=== PATIENT | male | born 1960 | race Caucasian/White ===

== ENCOUNTER 2020-04-14 18:27 | Emergency (ER) | payer SELFPAY ==
[~2020-04-14] VITALS: Ht 177.8 cm; Wt 70.3 kg
--- NOTE | 2020-04-14 18:32 | Emergency Room Report ---
History of Present Illness General Chief Complaint: Alcohol Intoxication Source: Patient, EMS Present Illness HPI Patient is a 59-year-old male unclear past medical history brought in by EMS for alcohol intoxication. Patient was laying in front of the building and security called 911. Patient had an empty bottle of vodka next to him. He also admits to doing "all the drugs". He denies any pain. Patient is a poor historian due to acute intoxication. When I asked him if he drank alcohol today he said "not enough". Allergies: Coded Allergies: UNABLE TO ASSESS (Unverified , 04/14/20) COVID-19 Screening Contact w/high risk pt: No Experienced COVID-19 symptoms?: No COVID-19 Testing performed ATTENDANT ARCADE: No Patient History Reviewed Nursing Documentation: PMH: Agreed; PSxH: Agreed Nursing Documentation-PMH Past Medical History: Deferred Review of Systems All Other Systems: limited - acute intoxication Physical Exam Vital Signs Date Time Temp Pulse Resp B/P (MAP) Pulse Ox O2 Delivery O2 Flow Rate FiO2 04/14/20 18:23 97.2 118 19 120/86 (97) 98 Room Air Sp02 EP Interpretation: reviewed, normal General Appearance: no apparent distress, other - Disheveled Head: normocephalic, atraumatic Eyes: bilateral eye normal inspection, bilateral eye PERRL ENT: other - EtOH on breath Neck: full range of motion, supple/symm/no masses Respiratory: no respiratory distress, no accessory muscle use Cardiovascular #1: tachycardia Gastrointestinal: non tender, soft, no guarding, no rebound Rectal: deferred Musculoskeletal: normal range of motion Neurologic: professional caster III-XII nml as tested Psychiatric: no suicidal/homicidal ideation Skin: no rash Lymphatic: no adenopathy Medical Decision Making Homeless Attestation I, The treating physician Dr. Miranda, have assessed and agrees that patient is medically stable for discharge to an outpatient disposition. Diagnostic Impression: Primary Impression: Acute alcoholic intoxication ER Course Patient presented acutely intoxicated. Patient given IV fluids. CT brain demonstrates no acute intracranial pathology. Patient's heart rate has improved and is currently in the 90s. Patient is tolerating p.o. Patient is ambulating without difficulty. He is now alert and oriented x3. Patient advised to refrain from excessive alcohol abuse. After discussing risks and benefits of further diagnostics, treatment plans, as well as indications for and risks of admission, the patient is agreeable to being discharged home. I have explained that their evaluation and treatment in the emergency department today is an important step towards them achieving better health but that their evaluation today is not intended to replace further evaluation and treatment by a physician in their local clinic. I have explained that while the current findings suggest no immediate life threatening emergency they will require further evaluation and treatment by a physician of their choice in their area. They understand that it will be necessary for them to review the final reports of their ED visit with their clinic physician. We have reviewed indications for return to the Emergency Department. I have explained that additional time may need to pass and/or additional testing as an outpatient may be necessary before a definitive diagnosis can be made. They tell me they are willing to follow up as instructed within the timeframe I recommend. They appear to understand what we discussed. Additionally they understand that if they are unable to be seen by an outpatient physician they are welcome, and in fact should, return to the Emergency Department for a repeat evaluation. The patient is stable at time of discharge. Laboratory Tests Test 04/14/20 18:53 POC Whole Blood Glucose 167 MG/DL (74-106) H EKG Diagnostic Results EKG Time: 18:52 EP Interpretation: Emerald Miranda MD Rate: tachycardiac - 109 bpm Rhythm: other - Sinus tachycardia ASA given to the pt in ED: No Rhythm Strip Diag. Results Rhythm Strip Time: 18:58 EP Interpretation: yes - Emerald Miranda MD Rate: 106 bpm Rhythm: no PVC's, no ectopy, other - Sinus tachycardia Last Vital Signs Date Time Temp Pulse Resp B/P (MAP) Pulse Ox O2 Delivery O2 Flow Rate FiO2 04/14/20 18:23 97.2 118 19 120/86 (97) 98 Room Air Disposition: HOME, SELF-CARE Condition: Stable Additional Instructions: The patient was provided with discharge instructions, notified to follow-up with a primary care doctor and or specialist in the next 24-48 hours, and to return to the ED if they have worsening of their symptoms. Please note that this report is being documented using [employer] technology. This can lead to erroneous entry secondary to incorrect interpretation by the dictating instrument. Emerald Miranda M.D. Apr 14, 2020 18:32
[2020-04-14 19:07] VITALS: BP 124/88
--- NOTE | 2020-04-14 19:38 | Diagnostic Imaging Report ---
EXAM: CT Head Without Intravenous Contrast CLINICAL HISTORY: AMS TECHNIQUE: Axial computed tomography images of the head/brain without intravenous contrast. CTDI is 53.4 mGy and DLP is 1045.5 mGy-cm. One or more of the following dose reduction techniques were used: automated exposure control, adjustment of the mA and/or kV according to patient size, use of iterative reconstruction technique. COMPARISON: No relevant prior studies available. FINDINGS: Brain: No intracranial hemorrhage, mass effect or evidence of intracranial edema. Chronic appearing encephalomalacia identified within the left frontal lobe (7: 14). 14 mm hypoattenuating lesion in the right frontal lobe and (7:15) without adjacent parenchymal edema. Ventricles: No acute ventriculomegaly. Incidental note is made of a cavum vergae. Bones/joints: Status post ORIF of right zygomatic bone frontal process. Chronic appearing displaced nasal bone fractures. Nail identified traversing the maxillary and ethmoid sinuses. No acute fractures seen. Soft tissues: Unremarkable. Sinuses: Right maxillary and sphenoid sinus disease. Mastoid air cells: Unremarkable as visualized. No mastoid effusion. IMPRESSION: 1. A 14 mm hypoattenuating lesion in the right frontal lobe without adjacent parenchymal edema. This is likely chronic in etiology from a prior insult but correlate with prior head CT or MRI if available to evaluate for any interval change. Otherwise, no acute intracranial process. No acute intracranial hemorrhage. 2. Status post ORIF of the frontal process of the right zygomatic bone. Chronic appearing displaced nasal bone fractures. Nail identified traversing the maxillary and ethmoid sinuses. 3. Right maxillary and sphenoid sinus disease.
[2020-04-14 23:00] VITALS: BP 132/90
== END 2020-04-14 23:00 | disposition home or self-care (01) ==
LOC: EDBD 18:27 → EMR 18:50
DX: F10.129 Alcohol abuse with intoxication, unspecified (principal); R00.0 Tachycardia, unspecified
CPT/HCPCS: 70450; 82962; 93005; 96360; 99284; J7030